=== PATIENT | female | born 1995 ===

== ENCOUNTER 2017-04-28 08:34 | Emergency (ER) | payer OTHER ==
[2017-04-28 08:40] VITALS: BP 108/70; PULSE 90; RESP 20; TEMP 99.1; O2SAT 100
--- NOTE | 2017-04-28 09:04 | C.PDOC ---
History Of Present Illness 22 y/o female presents to ED with complaints of left ear pain and decreased hearing for 3 days. Patient states pain began after swimming and water entered her ear. Patient reports prior episodes of swimmer's ear. She denies fever, cough, runny nose, sore throat. Time Seen by Provider: 04/28/17 08:53 Chief Complaint (Nursing): ENT Problem History Per: Patient History/Exam Limitations: None Onset/Duration Of Symptoms: Days Current Symptoms Are (Timing): Still Present Symptoms Have Been: Continuous Severity: Mild Past Medical History Reviewed: Historical Data, Nursing Documentation, Vital Signs Vital Signs: Last Vital Signs Temp 99.1 F 04/28/17 08:40 Pulse 90 04/28/17 08:40 Resp 20 04/28/17 08:40 BP 108/70 04/28/17 08:40 Pulse Ox 100 04/28/17 10:31 - Medical History PMH: No Chronic Diseases Family History: States: No Known Family Hx - Social History Hx Alcohol Use: No Hx Substance Use: No - Immunization History Hx Tetanus Toxoid Vaccination: No Hx Influenza Vaccination: No Hx Pneumococcal Vaccination: No Review Of Systems Except As Marked, All Systems Reviewed And Found Negative. Constitutional: Negative for: Fever, Chills ENT: Positive for: Ear Pain. Negative for: Ear Discharge, Nose Congestion, Throat Swelling Cardiovascular: Negative for: Chest Pain Respiratory: Negative for: Cough, Shortness of Breath Skin: Negative for: Rash Physical Exam - Physical Exam Appears: Well, Non-toxic, Other (in mild pain) Skin: Normal Color, Warm, Dry Head: Normacephalic Ear(s): Left: Other (Canal erythematous, swollen and with purulent discharge, no mastoid TTP), Right: Normal Oral Mucosa: Moist Throat: Normal, No Erythema, No Exudate Cardiovascular: Rhythm Regular Respiratory: Normal Breath Sounds, No Rales, No Rhonchi, No Wheezing Neurological/Psych: Oriented x3 ED Course And Treatment O2 Sat by Pulse Oximetry: 100 (RA) Pulse Ox Interpretation: Normal Progress Note: Patient given PO Ciprofloxacin and PO Tylenol. Rxs given for Ofloxacin drops and PO Ciprofloxacin. She was instructed to follow with ENT within 1 week, and understands she should return to ED if her symptoms worsen. Disposition Counseled Patient/Family Regarding: Diagnosis, Need For Followup, Rx Given - Disposition Referrals: Alvaro Jordan MD [Staff Provider] - Calvin Tam MD [Staff Provider] - Disposition: HOME/ ROUTINE Disposition Time: 09:15 Condition: STABLE Additional Instructions: FOLLOW UP WITH ENT SPECIALIST IF SYMPTOM PERSIST OR WORSEN USE MEDICATIONS DIRECTED, AND MOTRIN OR TYLENOL NEEDED FOR PAIN Prescriptions: Ciprofloxacin [Cipro] 1 tab PO BID #14 tab Ofloxacin Otic 0.3% [Floxin 0.3% Otic Soln] 10 drop GT ONCE #1 bottle Instructions: Otitis Externa (ED) Print Language: BULGARIAN - POA Present On Arrival: None - Clinical Impression Clinical Impression: Otitis externa - Scribe Statement The provider has reviewed the documentation as recorded by the Scribortiz Eugene All medical record entries made by the Samiraibortiz were at my direction and personally dictated by me. I have reviewed the chart and agree that the record accurately reflects my personal performance of the history, physical exam, medical decision making, and the department course for this patient. I have also personally directed, reviewed, and agree with the discharge instructions and disposition.
== END 2017-04-28 09:20 | disposition home or self-care (01) ==
LOC: C.ER 08:34
DX: H60.92 Unspecified otitis externa, left ear (principal)